=== PATIENT | male | born 1960 | race Caucasian/White ===

== ENCOUNTER 2019-01-11 07:37 | Outpatient (CLI) | payer OTHER ==
[~2019-01-11 07:37] MED LIST: ASPI-496 PO; ATOR40TA78 PO; ISOS30TA21 PO; METO-93 PO; METR45GE TP; NITR0.4T41 SL; VALS160T3 PO
== END 2019-01-11 23:59 | disposition home or self-care (01) ==
LOC: CVU 07:37
PROVIDERS: ATTEND Internal Medicine Cardiovascular Disease
DX: I08.8 Other rheumatic multiple valve diseases (principal); I10 Essential (primary) hypertension; I25.10 Atherosclerotic heart disease of native coronary artery without angina pectoris; E78.5 Hyperlipidemia, unspecified
CPT/HCPCS: 0399T; 93306